=== PATIENT | female | born 1950 | race Caucasian/White ===

== ENCOUNTER 2017-11-14 13:17 | Outpatient (CLI) | payer MEDICARE ==
[2017-11-14 17:52] LABS: T4 (THYROXINE) 10.04 ug/dL (6.09-12.23)
[2017-11-14 17:59] LABS: FREE T4 (FREE THYROXINE) 1.15 ng/dL (0.58-1.64)
== END 2017-11-14 13:18 | disposition home or self-care (01) ==
LOC: LAB.F 13:17
PROVIDERS: ATTEND Nurse Practitioner Family
DX: E03.2 Hypothyroidism due to medicaments and other exogenous substances (principal)
CPT/HCPCS: 36415; 84436; 84439; 84481

== ENCOUNTER 2019-10-06 11:46 | Outpatient (CLI) | payer MEDICARE | END 2019-10-06 11:47 | disposition home or self-care (01) | LOC: COV 11:46 | PROVIDERS: ATTEND Family Medicine | DX: R05 Cough (principal); R50.9 Fever, unspecified | CPT/HCPCS: 81599; U0002 ==

== ENCOUNTER 2021-08-20 08:00 | Outpatient (CLI) | payer MEDICARE | END 2021-08-20 23:59 | disposition home or self-care (01) | LOC: LAB.S 08:00 | PROVIDERS: ATTEND Registered Nurse | DX: U07.1 COVID-19 (principal) | CPT/HCPCS: 36415; 86769; U0004 ==

== ENCOUNTER 2022-06-27 08:00 | Outpatient (CLI) | payer MEDICARE ==
--- NOTE | 2022-06-27 14:26 | XRAY Report ---
PROCEDURE: Chest 2 View X-Ray INDICATIONS: INFLUENZA A TECHNIQUE: 2 views of the chest were acquired. COMPARISON: None FINDINGS: Surgical changes and devices: None. Lungs and pleura: No pleural effusions or pneumothorax. Lungs are clear. Mediastinum: Mediastinal contours are normal. Heart size is normal. Bones and chest wall: No suspicious bony abnormalities. Soft tissues appear unremarkable. IMPRESSION: No acute cardiopulmonary disease process. Reviewed by: Nadia Walton MD, PhD on 06/27/2022 2:24 PM PST Approved by: Nadia Walton MD, PhD on 06/27/2022 2:24 PM PST Station ID: [id number]
== END 2022-06-27 23:59 | disposition home or self-care (01) ==
LOC: DI.S 08:00
PROVIDERS: ATTEND Emergency Medicine
DX: J09.X2 Influenza due to identified novel influenza A virus with other respiratory manifestations (principal)

== ENCOUNTER 2022-07-04 13:43 | Outpatient (CLI) | payer MEDICARE ==
--- NOTE | 2022-07-04 17:51 | XRAY Report ---
PROCEDURE: Chest 2 View X-Ray INDICATIONS: INFLUENZA A, RIGHT LOWER ZONE PNA TECHNIQUE: 2 views of the chest were acquired. COMPARISON: 06/27/2022 FINDINGS: Surgical changes and devices: None. Lungs and pleura: Pulmonary hyperinflation chronic interstitial changes noted to. No focal infiltrate or pneumothorax Mediastinum: Mediastinal contours are normal. Heart size is normal. Bones and chest wall: No suspicious bony abnormalities. Soft tissues appear unremarkable. Generaliz ed decreased osseous mineralization present. Degenerative change is noted in the right glenohumeral j oint. Generalized osseous demineralization present. There is a wedge-shaped compression fractures in the midthoracic spine, stable IMPRESSION: Hyperinflation and chronic interstitial changes without focal infiltrate Reviewed by: Alex Moseley MD on 07/04/2022 4:50 PM AKST Approved by: Alex Moseley MD on 07/04/2022 4:50 PM AKST Station ID: [id number]
== END 2022-07-04 13:44 | disposition home or self-care (01) ==
LOC: DI.S 13:43
PROVIDERS: ATTEND Emergency Medicine
DX: J10.00 Influenza due to other identified influenza virus with unspecified type of pneumonia (principal)

== ENCOUNTER 2023-08-16 12:32 | Emergency (ER) | payer MEDICARE ==
[2023-08-16 12:45] VITALS: BP 164/75; O2SAT 99
[2023-08-16] MEDS ORDERED: BACLOFEN 10 MG TABLET PO STA (13:06)
[2023-08-16] MEDS ORDERED: HYDROcod/ACETAM 5/325 MG TABLET PO STA (13:06)
[2023-08-16] MEDS ORDERED: DEXAMETHASONE 10 MG/ML VIAL PO STA (13:08)
[2023-08-16] MEDS ORDERED: CHERRY SYRUP 10 ML UDC PO ONE (13:08)
--- NOTE | 2023-08-16 13:32 | ED Physician Documentation ---
History of Present Illness - Stated complaint Stated Complaint: L SHLDR/ARM PX - Chief complaint Chief Complaint: Ext Problem - History obtained from History obtained from: Patient - History of Present Illness Timing: Last night Pain level max: 8 Pain level now: 8 - Additonal information Additional information: 72 year old female with L shoulder/arm pain x 16 hours. States has been having tingling in the L 3-5th digits of the hand for several weeks. Had a theragun used on her neck yesterday by a chiropractor, but no manipulation. She took Tylenol without relief at home. No fevers. No chills. No trauma. No pain in the shoulder or the remainder of the arm. Review of Systems Constitutional: denies: Fever, Chills Respiratory: denies: Cough GI: denies: Nausea, Vomiting, Diarrhea Skin: denies: Rash Musculoskeletal: denies: Neck pain, Back pain Neurologic: denies: Focal weakness, Headache, Head injury, LOC PD PAST MEDICAL HISTORY - Past Medical History Past Medical History: Yes Cardiovascular: None Respiratory: None Neuro: None Endocrine/Autoimmune: HyPOthyroidism GI: None EXAMINER RATING CLERK: None : None HEENT: None Psych: None Musculoskeletal: None Derm: None - Past Surgical History Past Surgical History: Yes Ortho: Hip replacement, Knee replacement, Other /EXAMINER RATING CLERK: Tubal ligation HEENT: Tonsil/Adenoidectomy - Present Medications Home Medications: Ambulatory Orders Medication Instructions Recorded Confirmed Baclofen 5 mg PO HS PRN #14 tablet 08/16/23 HYDROcod/ACETAM 5/325 [Kirby 5/325] 1 - 2 ea PO Q6H PRN #14 tablet 08/16/23 Levothyroxine [Synthroid] 100 mcg PO DAILY 08/16/23 Liothyronine [Cytomel] 5 mcg PO DAILY 08/16/23 Meloxicam 15 mg PO DAILY 08/16/23 - Allergies Allergies/Adverse Reactions: Allergies Allergy/AdvReac Type Severity Reaction Status Date / Time No Known Drug Allergies Allergy Verified 08/16/23 12:41 - Social History Does the pt smoke?: No Smoking Status: Never smoker Does the pt drink ETOH?: Yes Does the pt have substance abuse?: No - Immunizations Immunizations are current?: Yes - POLST Patient has POLST: No PD ED PE NORMAL - Vitals Vital signs reviewed: Yes - General General: Alert and oriented X 3, No acute distress - HEENT HEENT: Moist mucous membranes - Neck Neck: Supple, no meningeal sign, No bony TTP, No JVD, No bruit, Other (No midline tenderness to palpation or percussion. No step-off or deformity. She does have paraspinal spasm of the left upper rhomboid. Reproduces her pain.) - Cardiac Cardiac: RRR, Strong equal pulses - Respiratory Respiratory: No respiratory distress, Clear bilaterally - Back Back: No spinal TTP - Derm Derm: Warm and dry - Extremities Extremities: Normal ROM s pain - Neuro Neuro: Alert and oriented X 3, clinical dermatologist 2-12 intact, No motor deficit, No sensory deficit, Normal speech Eye Opening: Spontaneous Motor: Obeys Commands Verbal: Oriented GCS Score: 15 - Psych Psych: Normal mood, Normal affect Results - Vitals Vitals: Vital Signs - 24 hr 08/16/23 12:33 Temperature 36.3 C L Heart Rate 66 Respiratory 17 Rate Blood Pressure 164/75 H O2 Saturation 99 Oxygen O2 Source Room air PD Medical Decision Making - ED course Complexity details: re-evaluated patient, considered differential, d/w patient, d/w family ED course: Patient was given hydrocodone, dexamethasone and baclofen. Pain resolved. Feels much better. Ambulating without difficulty. Using the arm without difficulty. We will place on pain medication and muscle relaxants for home. I will follow-up with her PCP for further care. No focal neurological deficits. No indication for emergent imaging. No paralysis. We we will have her follow- up closely with her PCP for further care. Appears to have a radiculopathy in the left arm causing the numbness in her left fingers over the past few weeks. She also appears to have a spasm from the Theragun use yesterday. Patient counseled regarding signs and symptoms for which I believe and urgent re- evaluation would be necessary. Patient with good understanding of and agreement to plan and is comfortable going home at this time This document was made in part using voice recognition software. While efforts are made to proofread this document, sound alike and grammatical errors may occur. Departure - Departure Disposition: 01 Home, Self Care Clinical Impression: Rhomboid muscle strain Qualifiers: Encounter type: initial encounter Qualified Code(s): S29.012A - Strain of muscle and tendon of back wall of thorax, initial encounter Radiculopathy Qualifiers: Spinal region: unspecified Qualified Code(s): M54.10 - Radiculopathy, site unspecified Condition: Good Instructions: ED Spasm Back No Trauma, ED Cervical Radiculopathy Follow-Up: Kelly Miranda NP [Primary Care Provider] - Within 1 week Prescriptions: Baclofen 5 mg PO HS PRN #14 tablet PRN Reason: spasm HYDROcod/ACETAM 5/325 [Kirby 5/325] 1 - 2 ea PO Q6H PRN #14 tablet PRN Reason: Pain Comments: Your prescriptions were sent to [facility] in [place]. This should continue to improve over the next few days. Please follow-up with your doctor as needed for further care. Please return if you worsen. I am prescribing a short course of narcotic pain medication for you. These are potentially dangerous and addictive medications that should be used carefully. These medications may constipate you. Take an natt-rek-xxmondy stool softener (docusate) twice daily with plenty of water while taking these medications. If you go 24 hours without a bowel movement, take bocf-ayx-efudhnd miralax, per package instructions. Do not drink or drive while taking these medications. If you received narcotic or sedating medications while in the emergency department, do not drive for 24 hours. Store this medication in a safe, secure place and out of reach of children. It is a violation of federal law to give or sell this medication to another person or to use in a manner other than prescribed. The ED will not refill narcotic prescriptions, including prescriptions lost or stolen. To dispose of unwanted medications: 1. [facility] at [address] [address] [facility] in [place] has a medication drop box. They accept prescription medications (in pill form) Sunday through Sunday 9:00 a.m. to 5:00 p.m. 2. [facility] [employer] [facility] accepts prescription medications (in pill form only) for disposal year round. Call for more information. 3. Contact the [facility] for the next [facility] sponsored prescription drug collection event. , [phone], or [phone]; Forms: PCP List Discharge Date/Time: 08/16/23 14:40
== END 2023-08-16 14:40 | disposition home or self-care (01) ==
LOC: ED 12:32
DX: S29.012A Strain of muscle and tendon of back wall of thorax, initial encounter (principal); M54.10 Radiculopathy, site unspecified; X58.XXXA Exposure to other specified factors, initial encounter
CPT/HCPCS: 99282; 99283; A9270

== ENCOUNTER 2023-08-20 07:00 | Outpatient (CLI) | payer MEDICARE ==
--- NOTE | 2023-08-21 11:03 | XRAY Report ---
PROCEDURE: Cervical Spine 2-3V INDICATIONS: CERVICAL RADICULOPATHY TECHNIQUE: 3 view(s) of the cervical spine were acquired. COMPARISON: None. FINDINGS: Bones: No fractures or dislocations to the T2 level. The lateral masses of C1 appear intact on the odontoid view. No suspicious bony lesions. No acute compression fractures. Severe multilevel cervic al spondylitic changes seen throughout the cervical spine. There is complete disc space loss at C3-4 with suggestion of partial fusion. Severe facet arthropathy at these levels. There are also severe de generative changes at C5-6 and C6-7 with significant disc space loss and prominent endplate osteophyt e formation. Advanced facet arthropathy at these levels as well. There is approximately 2 mm of anter olisthesis of C7 on T1 likely related to advanced spondylitic changes at this level. No asymmetric wi dening of the posterior elements. Soft tissues: No prevertebral soft tissue swelling. IMPRESSION: No displaced fracture or traumatic subluxation. Severe multilevel cervical spondylosis as described above. Approximately 2 mm of anterolisthesis of C7 on T1 likely related to advanced spondylitic changes. Reviewed by: Dorian Robertson MD on 08/21/2023 11:02 AM PST Approved by: Dorian Robertson MD on 08/21/2023 11:02 AM PST Station ID: [id number]
== END 2023-08-20 23:59 | disposition home or self-care (01) ==
LOC: DI.S 07:00
PROVIDERS: ATTEND Registered Nurse
DX: M47.22 Other spondylosis with radiculopathy, cervical region (principal); M43.12 Spondylolisthesis, cervical region

== ENCOUNTER 2023-10-27 07:00 | Outpatient (CLI) | payer MEDICARE ==
--- NOTE | 2023-10-27 19:05 | XRAY Report ---
PROCEDURE: Hand 3+V RT INDICATIONS: RIGHT HAND PAIN TECHNIQUE: 3 views of the hand(s) acquired. COMPARISON: None. FINDINGS: Bones: No fractures or dislocations. Normal alignment. No suspicious bony lesions. Soft tissues: No suspicious soft tissue calcifications or masses. IMPRESSION: No acute bony abnormality. If pain persists with conservative management, consider repeat radiographs in 10-14 days or cross-sectional imaging. Reviewed by: Sherin Aguilar MD on 10/27/2023 7:04 PM PDT Approved by: Sherin Aguilar MD on 10/27/2023 7:04 PM PDT Station ID: [id number]
== END 2023-10-27 23:59 | disposition home or self-care (01) ==
LOC: DI.S 07:00
PROVIDERS: ATTEND Emergency Medicine
DX: S60.221A Contusion of right hand, initial encounter (principal)